=== PATIENT | female | born 1975 | race Caucasian/White ===

== ENCOUNTER 2024-01-10 16:27 | Emergency (ER) | payer MEDICAID, SELFPAY ==
[2024-01-10 16:37] VITALS: BP 145/85; PULSE 89; RESP 19; TEMP 37.1; O2SAT 100; BMI 37.5
--- NOTE | 2024-01-10 16:37 | PD.EDDENTL ---
ED Dental RME/HPI General Chief complaint: Dental/Oral/Throat Stated complaint: JAW PAIN ALL THE WAY UP TO EARS X 4 HRS Time Seen by Provider: 01/10/24 16:31 Arrival date/time: 01/10/24 16:27 48-year-old female presents to the emergency department complains of bilateral jaw pain patient reports history of the same patient requesting pain injection Limitations: no limitations Related Data Home Medications ?Medication ?Instructions ?Recorded ?Confirmed clonazepam 1 mg tablet (Klonopin) 1 mg PO QDAY #0 tabs 04/17/15 Previous Rx's ?Medication ?Instructions ?Recorded ibuprofen 600 mg tablet 1 tab PO Q8HR PRN pain #30 tabs 12/06/16 etodolac 400 mg tablet 400 mg PO BID PRN pain #30 tabs 07/29/19 ibuprofen 800 mg tablet 800 mg PO TID PRN pain #30 tabs 06/18/20 ofloxacin 0.3 % ear drops 10 drp otic (ear) BID #5 mL 03/02/21 diclofenac sodium 1 % topical gel 2 g topical QID #30 grams 11/07/21 ibuprofen 800 mg tablet 800 mg PO TID PRN pain #30 tabs 02/25/22 ibuprofen 600 mg tablet 600 mg PO TID PRN pain #14 tabs 08/02/23 baclofen 10 mg tablet 10 mg PO BID PRN muscle spasm #30 08/24/23 tabs lidocaine 5 % topical patch 2 patch topical QDAY #30 ea 09/18/23 (Lidoderm) ibuprofen 600 mg tablet 600 mg PO Q8H PRN pain #20 tabs 11/24/23 cyclobenzaprine 10 mg tablet 10 mg PO TID PRN muscle spasm 10 01/10/24 days #30 tab-caps ibuprofen 800 mg tablet 800 mg PO TID PRN pain #30 tabs 01/10/24 Allergies Allergy/AdvReac Type Severity Reaction Status Date / Time lurasidone [From Latuda] Allergy Severe Hives Verified 01/10/24 16:29 Penicillins Allergy Severe Rash Verified 01/10/24 16:29 Milk Containing Products Allergy Rash Verified 01/10/24 16:29 (Dairy) Bee Stings Allergy Severe ANAPHYLACTIC Uncoded 01/10/24 16:29 SHOCK Review of Systems Review of Systems Systems Reviewed: All systems reviewed, normal except as documented Constitutional Constitutional: Reports system reviewed and no additional complaints, except as documented, Denies fever(s) and Denies headache(s) Eyes Eyes: Reports system reviewed and no additional complaints, except as documented and Denies blurry vision ENT Ears, Nose, Mouth, and Throat: Reports system reviewed and no additional complaints, except as documented, Reports facial pain, Denies headache(s), Denies nasal congestion and Denies nasal discharge Cardiovascular Cardiovascular: Reports system reviewed and no additional complaints, except as documented, Denies chest pain and Denies dyspnea Respiratory Respiratory: Reports system reviewed and no additional complaints, except as documented, Denies chest congestion, Denies cough and Denies dyspnea Gastrointestinal Gastrointestinal: Reports system reviewed and no additional complaints, except as documented and Denies abdominal pain Integumentary/Breasts Skin/Breast: Reports system reviewed and no additional complaints, except as documented and Denies rash Neurologic Neurologic: Reports system reviewed and no additional complaints, except as documented, Reports as per HPI and Denies headache(s) Past Medical History Past Medical History NEUROLOGIC: Negative Neurological Disorders CARDIAC: Negative Cardiac Disorders ED Exam General Limitations: Present no limitations General appearance: Present alert and in no apparent distress Head Head exam: Present atraumatic Eye Eye exam: Present normal appearance, PERRL and EOMI ENT ENT exam: Present mucous membranes moist and other (Jaw pain) Neck Neck exam: Present normal inspection, full ROM and trachea midline Chest Chest inspection: Present normal inspection and symmetric chest wall rise Respiratory Respiratory exam: Present normal lung sounds bilaterally Cardiovascular Cardiovascular exam: Present regular rate, normal rhythm and normal heart sounds Abdominal Exam Abdominal exam: Present soft and normal bowel sounds Extremities Exam Extremities exam: Present normal inspection and full ROM Back Exam Back exam: Present normal inspection and full ROM Neurological Exam Neurological exam: Present alert, oriented X3 and CN II-XII intact Psychiatric Psychiatric exam: Present normal affect and normal mood Skin Skin exam: Present warm, dry, intact and normal color Course Quality Measures none Orders Category Date Time Status Ketorolac Inj [Toradol Inj] Med 01/10/24 16:37 Discontinued 30 mg IM X1 ONE Vital Signs Vital signs: Vital Signs Temperature 98.8 F 01/10/24 16:37 Pulse Rate 89 01/10/24 16:37 Respiratory Rate 19 01/10/24 16:37 Blood Pressure 145/85 H 01/10/24 16:37 Pulse Oximetry (%) 100 01/10/24 16:37 Oxygen Delivery Method Room Air 01/10/24 16:37 O2 saturation 100% room air within normal limits Dental / Oral MDM Narrative MDM Narrative:: 48-year-old female presents to the emergency department complains of bilateral jaw pain patient reports history of the same patient requesting pain injection On exam patient well-appearing patient does not appear ill or toxic no acute distress patient shows me she has no chest pain or shortness of breath Patient given Toradol for pain Patient discharged home in no distress to follow-up with primary care doctor in the next 24 to 48 hours and for any worsening symptoms to return to the ER immediately Patient data External records reviewed:: [facility] previous records Clinical information provided by:: patient Social determinants that could affect healthcare access:: none Patient has the following chronic illnesses:: None How is presenting disease/condition affected by chronic disease/condition?: no chronic disease Evaluation data The following diagnostics were reviewed and interpreted by me:: other (specify) (N/A) Lab and/or radiology exams considered but not ordered:: Consider not ordered Interpretation Summary: N/A Medications / Prescriptions Medications or Prescriptions considered but not ordered:: Given Medication administrations:: Medication Administration History Discontinued Medications Ketorolac Tromethamine (Ketorolac Inj 30 Mg/Ml Vial) 30 mg IM X1 ONE Stop: 01/10/24 16:38 Last Admin: 01/10/24 16:43 Dose: 30 mg Documented By: SAMARA Given Consultations Consultation(s) initiated? (list below): No Diagnosis Dental Differential Diagnosis: gingival abscess, dental caries, toothache and fracture of tooth Most likely diagnosis given after review of the tests above:: Facial pain Admission Indicated Admission indicated?: not indicated Admission Request Was there a request for admission?: No Disposition Plan Disposition Plan: Discharge Discharge Attestation Discharge Attestation: The patient and all family members were given an opportunity to ask questions and understood the discharge instructions. Discharge instructions specifically effects, indications for sooner follow up or return to the emergency department, and the expected course of current diagnosis. Patient condition: Stable Discharge Plan Plan Patient Disposition: HOME (Self Care) Disposition Comment: Stable Prescriptions/Referrals Prescriptions/Med Rec: New cyclobenzaprine 10 mg tablet 10 mg PO TID PRN (Reason: muscle spasm) 10 Days Qty: 30 0RF ibuprofen 800 mg tablet 800 mg PO TID PRN (Reason: pain) Qty: 30 0RF No Action clonazepam [Klonopin] 1 MG tablet 1 mg PO QDAY Qty: 0 ibuprofen 600 MG tablet 1 tab PO Q8HR PRN (Reason: pain) Qty: 30 0RF ibuprofen 800 mg tablet 800 mg PO TID PRN (Reason: pain) Qty: 30 0RF ofloxacin 0.3 % drops 10 drp otic (ear) BID Qty: 5 0RF etodolac 400 mg tablet 400 mg PO BID PRN (Reason: pain) Qty: 30 0RF diclofenac sodium 1 % gel 2 g topical QID Qty: 30 0RF Rx Instructions: apply to single elbow, wrist or hand; for hand includes palm/fingers/back of hand ibuprofen 800 mg tablet 800 mg PO TID PRN (Reason: pain) Qty: 30 0RF lidocaine [Lidoderm] 5 % adhesive patch,medicated 2 patch topical QDAY Qty: 30 0RF Rx Instructions: leave on most painful area for up to 12 hrs ibuprofen 600 mg tablet 600 mg PO TID PRN (Reason: pain) Qty: 14 0RF baclofen 10 mg tablet 10 mg PO BID PRN (Reason: muscle spasm) Qty: 30 0RF ibuprofen 600 mg tablet 600 mg PO Q8H PRN (Reason: pain) Qty: 20 0RF Problem List Clinical Impression: Jaw pain Patient/Caregiver Discharge Instructions Education Materials: Medicine for Pain Additional Instructions: Please follow up with your primary care doctor in the next 24-48hrs for any worsening symptoms return here immediately Print Language: Guyanese Stand Alone Forms: Ashley Award Info., Patient Portal Info Letter 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
[2024-01-10] MEDS: KETOROLAC INJ 30 MG/ML VIAL IM (16:43)
== END 2024-01-10 16:47 | disposition home or self-care (01) ==
LOC: SERX 16:48
PROVIDERS: Emergency Provider Emergency Medicine; PCP Family Medicine
DX: R68.84 Jaw pain (principal)
CPT/HCPCS: 96372; 99283; J1885

== ENCOUNTER 2024-01-27 14:22 | Emergency (ER) | payer MEDICAID, SELFPAY ==
[2024-01-27 15:02] VITALS: BP 152/102; PULSE 95; RESP 16; TEMP 36.6; O2SAT 98; BMI 30.4
--- NOTE | 2024-01-27 15:42 | XR_ITS ---
Examination: Foot, left 3 views Technique: AP oblique lateral left foot 3 views Exam date and time: January 27, 2024 1548 hrs. Comparison August 08, 2023 Indications: Left foot pain today Findings: No acute fracture No cortical bone destruction No foreign body Impression: No acute fracture No cortical bone destruction
--- NOTE | 2024-01-27 15:43 | PD.EDANKLE ---
Lower Extremity Injury RME/HPI General Chief Complaint: Ankle/Foot Injury Stated Complaint: LEFT FOOT PAIN Time Seen by Provider: 01/27/24 15:10 Arrival date/time: 01/27/24 14:22 RME / HPI RME / HPI Narrative: 48-year-old female patient came in for evaluation regarding left foot injury. Patient accidentally hit his foot with a bed frame resulting into swelling, pain, more on the fourth metatarsal area, severity moderate. Patient took ibuprofen with no relief. Denies any other injury. No medications taken prior travel. Related Data Home Medications ?Medication ?Instructions ?Recorded ?Confirmed clonazepam 1 mg tablet (Klonopin) 1 mg PO QDAY #0 tabs 04/17/15 Previous Rx's ?Medication ?Instructions ?Recorded ibuprofen 600 mg tablet 1 tab PO Q8HR PRN pain #30 tabs 12/06/16 etodolac 400 mg tablet 400 mg PO BID PRN pain #30 tabs 07/29/19 ibuprofen 800 mg tablet 800 mg PO TID PRN pain #30 tabs 06/18/20 ofloxacin 0.3 % ear drops 10 drp otic (ear) BID #5 mL 03/02/21 diclofenac sodium 1 % topical gel 2 g topical QID #30 grams 11/07/21 ibuprofen 800 mg tablet 800 mg PO TID PRN pain #30 tabs 02/25/22 ibuprofen 600 mg tablet 600 mg PO TID PRN pain #14 tabs 08/02/23 baclofen 10 mg tablet 10 mg PO BID PRN muscle spasm #30 08/24/23 tabs lidocaine 5 % topical patch 2 patch topical QDAY #30 ea 09/18/23 (Lidoderm) ibuprofen 600 mg tablet 600 mg PO Q8H PRN pain #20 tabs 11/24/23 ibuprofen 800 mg tablet 800 mg PO TID PRN pain #30 tabs 01/10/24 ibuprofen 800 mg tablet 800 mg PO TID PRN pain #30 tabs 01/27/24 Allergies Allergy/AdvReac Type Severity Reaction Status Date / Time lurasidone [From Latuda] Allergy Severe Hives Verified 01/27/24 14:23 Penicillins Allergy Severe Rash Verified 01/27/24 14:23 Milk Containing Products Allergy Rash Verified 01/27/24 14:23 (Dairy) Bee Stings Allergy Severe ANAPHYLACTIC Uncoded 01/27/24 14:23 SHOCK Review of Systems Review of Systems Narrative Review of Systems: Review of system reviewed and within normal limits except mentioned in HPI ED Exam Narrative Physical exam: VITAL SIGNS: Reviewed. GENERAL APPEARANCE: Alert and interactive, follows commands, no acute distress, HEAD AND FACE: Non-traumatic. ENT: PERRL, pink conjunctivitis, eyelid no trauma, Mucous membrane moist. NECK: Supple, nontender, no nuchal rigidity. CHEST: No tenderness, no crepitus, no paradoxical movement, no retractions. LUNGS: Clear, well ventilated, symmetric, no rales, no wheezing, no ronchi, no stridor, good breath sounds bilaterally. HEART: Regular rate, regular rhythm, no murmur, no gallops. ABDOMEN: Soft, positive bowel sounds, nondistended, no guarding, nontender, no rebound, no masses, RECTAL: Deferred. GENITAL: Deferred. NEUROLOGICAL: Gross motor function intact sensory function intact, Appropriate for age. MUSCULOSKELETAL: low back nontender, full range of motion. EXTREMITIES: Pain and tenderness with swelling and bruising left fourth metatarsal, full range of motion. SKIN: Color pink, dry, no rash, no lacerations, no abrasions, no contusions. LYMPHATICS: Deferred. Course Quality Measures none Orders Category Date Time Status XR foot comp LT min 3V Stat Exams 01/27/24 15:42 Completed HYDROcodone/APAP 10325 [[place] 10/325] Med 01/27/24 15:42 Discontinued 1 tab PO X1 ONE Vital Signs Vital signs: Vital Signs Temperature 97.8 F 01/27/24 15:02 Pulse Rate 95 01/27/24 15:02 Respiratory Rate 16 01/27/24 15:02 Blood Pressure 152/102 H 01/27/24 15:02 Pulse Oximetry (%) 98 01/27/24 15:02 Oxygen Delivery Method Room Air 01/27/24 15:02 Extremity Injury, Lower MDM Narrative MDM Narrative:: X-ray of the foot is negative for any acute pathology. Results discussed with the patient. Patient was given [place] with significant improvement of pain. Patient supercharge Patient data External records reviewed:: None Clinical information provided by:: none Social determinants that could affect healthcare access:: none Patient has the following chronic illnesses:: None How is presenting disease/condition affected by chronic disease/condition?: no chronic disease Evaluation data The following diagnostics were reviewed and interpreted by me:: radiology exam(s) Lab and/or radiology exams considered but not ordered:: None Interpretation Summary: X-ray report is negative for any acute osseous pathology. Medications / Prescriptions Medications or Prescriptions considered but not ordered:: None Medication administrations:: Medication Administration History Discontinued Medications Hydrocodone Bitart/Acetaminophen (Hydrocodone/[place] 10/325 Tab) 1 tab PO X1 ONE Stop: 01/27/24 15:43 Last Admin: 01/27/24 15:52 Dose: 1 tab Documented By: ER [place] Consultations Consultation(s) initiated? (list below): No Diagnosis Extremity Injury, Lower Differential Diagnosis: other (Foot contusion, foot fracture, foot sprain) Most likely diagnosis given after review of the tests above:: Foot contusion Admission Indicated Admission indicated?: not indicated Explain why admission is indicated or not indicated:: Stable Admission Request Was there a request for admission?: No Disposition Plan Disposition Plan: Discharge Discharge Attestation Discharge Attestation: The patient was given an opportunity to ask questions and understood the discharge instructions. Discharge instructions specifically effects, indications for sooner follow up or return to the emergency department, and the expected course of current diagnosis. Patient condition: Stable Discharge Plan Plan Patient Disposition: HOME (Self Care) Disposition Comment: stable Prescriptions/Referrals Prescriptions/Med Rec: New ibuprofen 800 mg tablet 800 mg PO TID PRN (Reason: pain) Qty: 30 0RF No Action clonazepam [Klonopin] 1 MG tablet 1 mg PO QDAY Qty: 0 ibuprofen 600 MG tablet 1 tab PO Q8HR PRN (Reason: pain) Qty: 30 0RF ibuprofen 800 mg tablet 800 mg PO TID PRN (Reason: pain) Qty: 30 0RF ofloxacin 0.3 % drops 10 drp otic (ear) BID Qty: 5 0RF etodolac 400 mg tablet 400 mg PO BID PRN (Reason: pain) Qty: 30 0RF diclofenac sodium 1 % gel 2 g topical QID Qty: 30 0RF Rx Instructions: apply to single elbow, wrist or hand; for hand includes palm/fingers/back of hand ibuprofen 800 mg tablet 800 mg PO TID PRN (Reason: pain) Qty: 30 0RF lidocaine [Lidoderm] 5 % adhesive patch,medicated 2 patch topical QDAY Qty: 30 0RF Rx Instructions: leave on most painful area for up to 12 hrs ibuprofen 800 mg tablet 800 mg PO TID PRN (Reason: pain) Qty: 30 0RF ibuprofen 600 mg tablet 600 mg PO TID PRN (Reason: pain) Qty: 14 0RF baclofen 10 mg tablet 10 mg PO BID PRN (Reason: muscle spasm) Qty: 30 0RF ibuprofen 600 mg tablet 600 mg PO Q8H PRN (Reason: pain) Qty: 20 0RF Problem List Clinical Impression: Contusion of foot Patient/Caregiver Discharge Instructions Discharge Activity: activity as tolerated Education Materials: Bruises (Contusions) Additional Instructions: Thank you for the opportunity for serving you today. You are stable for discharged . You are advised to: Follow-up with your PCP in 1 to 2 days Return to ED for worsening of symptoms Increase oral fluids Take medication as prescribed Print Language: Macanese Stand Alone Forms: Ashley Award Info., Patient Portal Info Letter SOSA/KOKO Supervising Physician SOSA/KOKO Supervising Physician: MD Gladys
[2024-01-27] MEDS: HYDROcodone/APAP 10/325 TAB PO (15:52)
== END 2024-01-27 16:58 | disposition home or self-care (01) ==
LOC: SERX 17:17
PROVIDERS: Emergency Provider Emergency Medicine
DX: S90.32XA Contusion of left foot, initial encounter (principal); W22.8XXA Striking against or struck by other objects, initial encounter
CPT/HCPCS: 73630; 99283; A9270

== ENCOUNTER 2024-05-02 21:01 | Emergency (ER) | payer MEDICAID, SELFPAY ==
[2024-05-02 21:01] VITALS: BMI 31.9
[2024-05-02 21:17] VITALS: BP 165/104; BP 176/118; PULSE 121; RESP 20; TEMP 36.9; O2SAT 93
--- NOTE | 2024-05-02 21:26 | EKG_ITS ---
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
--- NOTE | 2024-05-02 21:27 | XR_ITS ---
Examination: CT brain head without contrast. 2-D sagittal coronal reconstructions Date and time of exam:May 02, 2024 10 0 1:00 PM Indications: Patient fell 3:00 AM today with injury to the head, head pain CTDI: vol (mGy):48.3 DLP: (mGycm):896 Technique: Multiple CT axial sections of the brain have been obtained, 5 mm slice thickness. Contrast has not been administered. 2-D sagittal, coronal reconstructions have been obtained Low dose protocols were performed. One or more of the following dose reduction techniques were used; automated exposure control, adjustment of the mA and/or KV according to patient size, use of iterative reconstruction technique. Findings: No significant ventricular enlargement. Intra-axial or extra-axial hemorrhage density is not seen. No mass effect or midline shift Basal cisterns are not remarkable. Fourth ventricle is midline. Cranial vault intact. Significant sinusitis including acute maxillary sinusitis Impression: Negative for acute hemorrhage, mass effect or midline shift
--- NOTE | 2024-05-02 21:27 | XR_ITS ---
Examination: PA chest single view Technique: Upright PA chest single view Exam date and time: May 02, 2024 at 2137 hrs. Comparison October 02, 2014 Indications: Syncopal episode today. Findings: Normal heart size Accentuation basilar bronchovascular markings No lobar pneumonia No pulmonary edema Impression: Basilar bronchitis pattern
--- NOTE | 2024-05-02 21:28 | PD.EDRME ---
Rapid Medical Screening Exam [facility] Arrival date/time: 05/02/24 21:01 48F with history of psych/marijuana/alcohol use presents to ED with syncope leading to fall/head pain and alcohol withdrawal symptoms including tremors. Chief Complaint: Alcohol Vital signs: Vital Signs Temperature 98.5 F 05/02/24 21:17 Pulse Rate 121 H 05/02/24 21:17 Respiratory Rate 20 05/02/24 21:17 Blood Pressure 176/118 H 05/02/24 21:17 Pulse Oximetry (%) 93 L 05/02/24 21:17 Oxygen Delivery Method Room Air 05/02/24 21:17
[2024-05-02] MEDS: DIAZEPAM 5 MG TABLET 10 MG PO (21:34)
[2024-05-02 22:12] VITALS: BP 175/116; PULSE 121; RESP 17; TEMP 36.8; O2SAT 92
[2024-05-02 22:13] LABS: Basophils # (Auto) 0.1 Thou/mm3 (0.0-0.2); Basophils % (Auto) 0 % (0-2.5); Eosinophils % (Auto) 0 % (0-10); Hemoglobin 13.6 g/dL (12.0-16.0); Immature Granulocytes % (Auto) 0 % (0-0); Immature Granulocytes Auto 0.05 Thou/mm3 (0.00-0.00); Lymphocytes % (Auto) 21 % (10-50); Mean Corpuscular Hemoglobin 31.6 pg (25.0-35.0); Mean Corpuscular Volume 93 fL (80-100); Monocytes # (Auto) 1.2 Thou/mm3 (0.0-0.8); Monocytes % (Auto) 9 % (0-12); Neutrophils # (Auto) 9.5 Thou/mm3 (1.8-7.7); Neutrophils % (Auto) 69 % (37-80); Nucleated Red Blood Cell % 0 /100 WBC (0); Platelet Count 328 Thou/mm3 (140-440); RDW Standard Deviation 41.6 fL (36.4-46.3); Red Blood Count 4.31 Miln/mm3 (4.00-5.20); White Blood Count 13.8 Thou/mm3 (3.6-11.0)
[2024-05-02 22:30] LABS: Alanine Aminotransferase 17 U/L (10-49); Albumin, Serum 5.5 gm/dL (3.5-5.0); Albumin/Globulin Ratio 1.7 (1.2-2.2); Alcohol, Blood Medical < 3.0 mg/dL (0-10.0); Alkaline Phosphatase 89 U/L (46-116); Anion Gap 11 (7-16); Aspartate Amino Transferase 18 U/L (0-34); BUN/Creatinine Ratio 7 Ratio (12-20); Bilirubin,Total 0.6 mg/dL (0.3-1.2); Blood Urea Nitrogen 6 mg/dL (9-23); Carbon Dioxide 26.9 mMol/L (20.0-31.0); Chloride 100 mMol/L (98-107); Creatinine (Component) 0.9 mg/dL (0.6-1.3); Estimated Creatinine Clearance 84.4 mL/min (>60); Globulin 3.3 gm/dL (2.3-3.5); Glucose 113 mg/dL (74-106); Osmolality,Calculated 274 (275-295); Potassium 3.3 mMol/L (3.4-5.1); Sodium 138 mMol/L (136-145); Total Protein 8.8 gm/dL (5.7-8.2); Troponin I < 0.002 ng/mL (0.0-0.045); eGFR > 60 See Note
[2024-05-02 23:00] VITALS: BP 186/112; PULSE 119; RESP 22; TEMP 36.8; O2SAT 91
--- NOTE | 2024-05-02 23:34 | EDNOTE_ITS ---
ED Alcohol RME/HPI General Chief Complaint: Alcohol Stated Complaint: ALCOHOL WITHDRAWAL / FALL Arrival date/time: 05/02/24 21:01 RME / HPI RME / HPI narrative: 05/02/24 21:01 48F with history of psych/marijuana/alcohol use presents to ED with syncope leading to fall/head pain and alcohol withdrawal symptoms including tremors. -------- Dr. Purcell?s Main ED Evaluation: 48yo female presents to the ED for complaints of right flank pain and shortness of breath. Patient states she passed out and fell on 04/24/24, reporting she was passed out on the floor for 6 hours. Patietn states she started having right flank pain and felt short of breath today, so she came in for evaluation. Patient reports associated productive cough with white phlegm. Patient denies any N/V, abdominal pain or any other associated symptoms. Patient states she quit drinking alcohol on 04/24/24. Patient is a current tobacco smoker. Denies any abdominal PSH. Related Data Home Medications ?Medication ?Instructions ?Recorded ?Confirmed clonazepam 1 mg tablet (Klonopin) 1 mg PO QDAY #0 tabs 04/17/15 Previous Rx's ?Medication ?Instructions ?Recorded ibuprofen 600 mg tablet 1 tab PO Q8HR PRN pain #30 t abs 12/06/16 etodolac 400 mg tablet 400 mg PO BID PRN pain #30 t abs 07/29/19 ibuprofen 800 mg tablet 800 mg PO TID PRN pain #30 t abs 06/18/20 ofloxacin 0.3 % ear drops 10 drp otic (ear) BID #5 mL 03/02/21 diclofenac sodium 1 % topical gel 2 g topical QID #30 grams 11/07/21 ibuprofen 800 mg tablet 800 mg PO TID PRN pain #30 t abs 02/25/22 ibuprofen 600 mg tablet 600 mg PO TID PRN pain #14 t abs 08/02/23 baclofen 10 mg tablet 10 mg PO BID PRN muscle spas m #30 08/24/23 tabs lidocaine 5 % topical patch 2 patch topical QDAY #30 e a 09/18/23 (Lidoderm) ibuprofen 600 mg tablet 600 mg PO Q8H PRN pain #20 t abs 11/24/23 ibuprofen 800 mg tablet 800 mg PO TID PRN pain #30 t abs 01/10/24 ibuprofen 800 mg tablet 800 mg PO TID PRN pain #30 t abs 01/27/24 doxycycline monohydrate 100 mg 100 mg PO BID Community -acquired 05/03/24 capsule pneumonia 10 days #20 caps ibuprofen 600 mg tablet 600 mg PO Q6H PRN pain #30 t abs 05/03/24 Allergies Allergy/AdvReac Type Severity Reaction Status Date / Time lurasidone (From Latuda) Allergy Severe Hives Verified 01/27/24 14:23 Penicillins Allergy Severe Rash Verified 01/27/24 14:23 Milk Containing Products Allergy Rash Verified 01/27/24 14:23 (Dairy) Bee Stings Allergy Severe ANAPHYLACTIC Uncoded 01/27/24 14:23 SHOCK Review of Systems Review of Systems Systems Reviewed: All systems reviewed, normal except as documented Past Medical History Past Medical History NEUROLOGIC: Negative Neurological Disorders CARDIAC: Negative Cardiac Disorders or Congestive Heart Failure RESPIRATORY: Positive Asthma; Negative Chronic Obstructive Pulmonary Disease (COPD) GENITOURINARY: Negative Renal Disease ENDOCRINE: Negative Diabetes Mellitus Type 1 or Diabetes Mellitus Type 2 HEMATOLOGIC: Negative Sickle Cell Disease PSYCHO/SOCIAL: Positive Bipolar Disorder Social History SMOKING STATUS: Former smoker ED Exam Narrative Physical exam: GENERAL APPEARANCE: alert and oriented x 4, well-developed, well-nourished, no acute distress VITALS: All vitals were reviewed and the pulse ox is 96% on room air, which is normal according to my interpretation. HEENT: Normocephalic, atraumatic; pupils equal, round, reactive to light; EOMI; mucous membranes pink, moist; oropharynx clear NECK: Supple LUNGS: Coarse breath sounds throughout; no wheezes, no rales, no rhonchi HEART: Regular rate, regular rhythm; normal S1, S2; no murmurs ABDOMEN: non distended; normal BS; soft, no tenderness, no guarding, no rebound; no masses, no organomegaly, no hernia BACK: right CVA tenderness EXTREMITIES: atraumatic; no edema NEUROLOGIC: awake; alert and oriented x4; cranial nerves II-XII grossly intact; no focal sensory or motor deficits PSYCHIATRIC: appropriate mood and affect SKIN: warm, dry, normal color; no rashes Course Quality Measures none Orders Category Date Time Status Bedside COVID-19 Antigen Test NOW Care 05/03/24 00:40 Active Bedside Influenza A&B Antigen Test NOW Care 05/03/24 00:[address] Screening NOW Care 05/03/24 00:43 Active Senior Administrator Support STAT Care 05/02/24 23:36 Active Continuous Pulse Oximetry ONCE Care 05/02/24 23:36 Active EKG (ED ONLY) *Do not use* NOW Care 05/02/24 21:26 Completed Insert IV STAT Care 05/02/24 23:[address] chest abdomen pelvis w Stat Exams 05/03/24 00:[address] head/brain wo con Stat Exams 05/02/24 21:27 Completed EKG (ED Only) Stat Exams 05/02/24 21:26 Draft XR chest 1V portable Stat Exams 05/02/24 21:27 Completed Alcohol, Blood Medical Stat Lab 05/02/24 21:59 Completed B-Type Natriuretic Peptide Stat Lab 05/03/24 00:54 Completed Blood Culture (Lab) Stat Lab 05/03/24 00:49 Received CBC Stat Lab 05/02/24 21:59 Completed Comprehensive Metabolic Panel Stat Lab 05/02/24 21:59 Completed Drug Screen,Urine Stat Lab 05/02/24 23:52 Completed HCG Qualitative,Urine Stat Lab 05/03/24 00:00 Completed LDH (Lactate Dehydrogenase) Stat Lab 05/03/24 00:54 Completed Lactate (Lactic Acid) Stat Lab 05/03/24 00:54 Completed Lipase Stat Lab 05/02/24 21:59 Completed Magnesium Stat Lab 05/02/24 21:59 Completed Magnesium Stat Lab 05/03/24 00:54 Completed Partial Thromboplastin Time Stat Lab 05/02/24 21:59 Completed Phosphorous Stat Lab 05/03/24 00:54 Completed Procalcitonin Stat Lab 05/03/24 00:54 Completed Prothrombin Time with INR Stat Lab 05/02/24 21:59 Completed Troponin I Stat Lab 05/02/24 21:59 Completed Urinalysis, C/S if Indicated Stat Lab 05/02/24 23:52 Completed Azithromycin Inj [Zithromax Inj] 500 mg Med 05/03/24 00:40 Discontinued Sodium Chloride 0.9% 250 ml [Ns] 250 ml IV X1 Diazepam Inj [Valium Inj] Med 05/03/24 02:02 Discontinued 5 mg IVP X1 ONE Diazepam [Valium] Med 05/02/24 21:27 Discontinued 10 mg PO X1 ONE Folic Acid Inj Med 05/02/24 23:37 Discontinued 1 mg IVP X1 ONE Sodium Chloride 0.9% 1000 ml [Ns] 1,000 ml Med 05/02/24 23:36 Discontinued IV 999 mls/hr Sodium Chloride 0.9% 1000 ml [Ns] 1,000 ml Med 05/03/24 00:40 Discontinued IV 999 mls/hr Thiamine Inj [Vitamin B-1 Inj] Med 05/02/24 23:37 Discontinued 100 mg IVP X1 ONE cefTRIAXone [Rocephin] 1,000 mg Med 05/03/24 00:38 Discontinued SODIUM CHLORIDE 0.9% (Popper) [Ns 0.9% (P)] 50 ml IV X1 chlordiazePOXIDE HCl [Librium] Med 05/03/24 00:41 Discontinued 50 mg PO X1 ONE hydrALAZINE INJ [Apresoline Inj] Med 05/03/24 02:02 Discontinued 10 mg IV X1 ONE Oxygen Delivery NOW RT 05/02/24 23:36 Active Reevaluation(s) Reevaluation #1: Patient's heart rate has improved to 109, but continues to be hypertensive at 145/102. Hydralazine and additional Valium 5mg ordered. Time: 01:59 Reevaluation #2: Patient's blood pressure has improved to 136/84 after receiving hydralazine. I am holding the Valium at this time. Time: 02:45 Vital Signs Vital signs: Vital Signs Temperature 98.5 F 05/02/24 21:17 Pulse Rate 121 H 05/02/24 21:17 Respiratory Rate 20 05/02/24 21:17 Blood Pressure 176/118 H 05/02/24 21:17 Pulse Oximetry (%) 93 L 05/02/24 21:17 Oxygen Delivery Method Room Air 05/02/24 21:17 Procedures -ED Smoking Cessation Time Spent Discussing Smoking Cessation w/Patient (min): 5 Patient Acknowledges Need for Cessation: Yes Additional Comments: The patient was counseled as to the multiple risks to their health from continued use of tobacco products. It was explained that continuing to smoke may lead to multiple short and terminal gauger negative health consequences, including but not limited to mouth/esophageal/lung cancer, COPD, and heart disease. The patient states she/he understands these risks and also understands the options and resources available to them to help them stop smoking. Nicotine replacement therapy, local hotlines, and local resources were discussed as viable options for helping them stop their tobacco use. The total time spent counseling the patient regarding tobacco cessation was 5 minutes Critical Care Time Critical Care Time Critical Care Time: Yes Total Critical Care Time (min.): 60 Attestation: The high probability of sudden, clinically significant deterioration in the patient?s condition required the highest level of my preparedness to intervene urgently. The services I provided to this patient were to treat and/or prevent clinically significant deterioration. Services included the following: chart data review, reviewing nursing notes and/or old charts, documentation time, business intelligence consultant collaboration regarding findings and treatment options, medication orders and management, direct patient care, vital sign assessments and ordering, interpreting and reviewing diagnostic studies and lab tests. Aggregate critical care time includes only time during which I was engaged in work directly related to the patient?s care, as described above, whether at bedside or elsewhere in the Emergency Department. It did not include time spent performing other reported procedures or the services of residents, students, nurses or physician assistants. Discharge Plan Plan Patient Disposition: Left Against Medical Advice Disposition Comment: Leaving AGAINST MEDICAL ADVICE Prescriptions/Referrals Prescriptions/Med Rec: New doxycycline monohydrate 100 mg capsule 100 mg PO BID 10 Days Qty: 20 0RF ibuprofen 600 mg tablet 600 mg PO Q6H PRN (Reason: pain) Qty: 30 0RF No Action clonazepam [Klonopin] 1 MG tablet 1 mg PO QDAY Qty: 0 ibuprofen 600 MG tablet 1 tab PO Q8HR PRN (Reason: pain) Qty: 30 0RF ibuprofen 800 mg tablet 800 mg PO TID PRN (Reason: pain) Qty: 30 0RF ofloxacin 0.3 % drops 10 drp otic (ear) BID Qty: 5 0RF etodolac 400 mg tablet 400 mg PO BID PRN (Reason: pain) Qty: 30 0RF diclofenac sodium 1 % gel 2 g topical QID Qty: 30 0RF Rx Instructions: apply to single elbow, wrist or hand; for hand includes palm/fingers/back of hand ibuprofen 800 mg tablet 800 mg PO TID PRN (Reason: pain) Qty: 30 0RF lidocaine [Lidoderm] 5 % adhesive patch,medicated 2 patch topical QDAY Qty: 30 0RF Rx Instructions: leave on most painful area for up to 12 hrs ibuprofen 800 mg tablet 800 mg PO TID PRN (Reason: pain) Qty: 30 0RF ibuprofen 600 mg tablet 600 mg PO TID PRN (Reason: pain) Qty: 14 0RF baclofen 10 mg tablet 10 mg PO BID PRN (Reason: muscle spasm) Qty: 30 0RF ibuprofen 600 mg tablet 600 mg PO Q8H PRN (Reason: pain) Qty: 20 0RF ibuprofen 800 mg tablet 800 mg PO TID PRN (Reason: pain) Qty: 30 0RF Referrals: Michael Root [Primary Care Provider] - In 1 week Problem List Clinical Impression: Pneumonia, Methamphetamine abuse, Cannabis abuse, Hypertensive emergency, Sepsis, Left against medical advice Patient/Caregiver Discharge Instructions Discharge Activity: activity as tolerated Education Materials: Addiction Ask These Questions, Addiction: Getting Help, Understanding Methamphetamine ..., Treating Drug Abuse and Addiction, Sepsis, Understanding Sepsis, ED Pneumonia (Adult) Additional Instructions: Just because you are leaving AGAINST MEDICAL ADVICE does not mean you cannot come back to the emergency department anytime you like. Please return to the ER when you are ready to complete the treatment of your illnesses and we will be more than happy to welcome you here. Please be sure to go to your pharmacy and fill your prescriptions. The most important prescription is doxycycline. This is your antibiotic. I am ordering this medicine to treat your pneumonia. Please take this twice per day until they are completely gone even if you feel better before that. Also there will be ibuprofen which you should take for pain. Please return to the ER at your earliest convenience and we will help you. Otherwise you should follow-up as soon as possible with your primary care doctor or in the family [facility]. Print Language: Romansh Stand Alone Forms: Ashley Award Info., Patient Portal Info Letter Alcohol MDM Narrative MDM Narrative: Scribe Attestation: 05/02/24 - Angela Tello am scribing for and in the presence of Dr. Purcell. 0257: Patient states she is unable to stay and needs to tend to her 17yo son at home. Risks discussed regarding her signout out against medical advice. Patient verbalized understanding and is signing out against medical advice. Patient is more than welcome to return for any worsening symptoms or any other concerns. Patient data External records reviewed:: [facility] previous records (Per chart review, patient was seen here on 12/11/23 for alcohol abuse.) Clinical information provided by:: patient Social determinants that could affect healthcare access:: alcohol use Patient has the following chronic illnesses:: asthma How is presenting disease/condition affected by chronic disease/condition?: uneffected by Evaluation data The following diagnostics were reviewed and interpreted by me:: lab results, radiology exam(s) and EKG tracing(s) Lab and/or radiology exams considered but not ordered:: none Interpretation Summary: WBC count is elevated at 13.8, Potassium is 3.3, Glucose is 113, LFTs are normal, Troponin is normal, Blood Alcohol is negative, UDS is positive for methamphetamines and marijuana, according to my interpretation. CXR shows bilateral lower lobe infiltrates, normal cardiac silhouette, and a normal mediastinum, according to my interpretation. EKG done at 2, sinus tachycardia, rate of 121, normal axis, no ectopy, no acute ischemia, according to my interpretation. [facility] Report Signed Patient: JOANNE CM [facility]. Record#: [id number] Birthdate: 1975 Age/Sex: 48 / F Location: [facility] Attending Dr: Ordering Physician: Larry Lozano PA-C Date of Service: 05/02/24 Procedure(s): XR chest 1V portable Accession Number(s): [id number] cc: Atif Moody MD; MICHAEL ROOT; Larry Lozano PA-C~ Examination: PA chest single view Technique: Upright PA chest single view Exam date and time: May 02, 2024 at 2137 hrs. Comparison October 02, 2014 Indications: Syncopal episode today. Findings: Normal heart size Accentuation basilar bronchovascular markings No lobar pneumonia No pulmonary edema Impression: Basilar bronchitis pattern Dictated By: Atif Moody MD Signed By: <Electronically signed by Atif Moody MD in OV> 05/02/242224 [facility] Report Signed [facility] Record[facility] [id number] Birthdate: 1975 Age/Sex: 48 / F Location: [facility] Attending Dr: Ordering Physician: Larry Lozano PA-C Date of Service: 05/02/24 Procedure(s): CT head/brain wo con Accession Number(s): [id number] cc: Atif Moody MD; MICHAEL ROOT; Larry Lozano PA-C~ Examination: CT brain head without contrast. 2-D sagittal coronal reconstructions Date and time of exam:May 02, 2024 10 0 1:00 PM Indications: Patient fell 3:00 AM today with injury to the head, head pain CTDI: vol (mGy):48.3 DLP: (mGycm):896 Technique: Multiple CT axial sections of the brain have been obtained, 5 mm slice thickness. Contrast has not been administered. 2-D sagittal, coronal reconstructions have been obtained Low dose protocols were performed. One or more of the following dose reduction techniques were used; automated exposure control, adjustment of the mA and/or KV according to patient size, use of iterative reconstruction technique. Findings: No significant ventricular enlargement. Intra-axial or extra-axial hemorrhage density is not seen. No mass effect or midline shift Basal cisterns are not remarkable. Fourth ventricle is midline. Cranial vault intact. Significant sinusitis including acute maxillary sinusitis Impression: Negative for acute hemorrhage, mass effect or midline shift Dictated By: Atif Moody MD Signed By: <Electronically signed by Atif Moody MD in OV> 05/02/24 0908 Medications / Prescriptions Medications or Prescriptions considered but not ordered:: none Medication administrations:: Medication Administration History Discontinued Medications Chlordiazepoxide HCl (Chlordiazepoxide Hcl 25 Mg Capsule) 50 mg PO X1 ONE Stop: 05/03/24 00:42 Last Admin: 05/03/24 01:18 Dose: 50 mg Documented By: YOKASTA Diazepam (Diazepam 5 Mg Tablet) 10 mg PO X1 ONE Stop: 05/02/24 21:28 Last Admin: 05/02/24 21:34 Dose: 10 mg Documented By: CB Diazepam (Diazepam Inj 5 Mg/Ml Vial 2 Ml) 5 mg IVP X1 ONE Stop: 05/03/24 02:03 Folic Acid (Folic Acid Inj 1 Mg/0.2 Ml) 1 mg IVP X1 ONE Stop: 05/02/24 23:38 Last Admin: 05/03/24 01:05 Dose: 1 mg Documented By: YOKASTA Hydralazine HCl (Hydralazine Inj 20 Mg/Ml Vial) 10 mg IV X1 ONE Stop: 05/03/24 02:03 Last Admin: 05/03/24 02:42 Dose: 10 mg Documented By: YOKASTA Sodium Chloride (Ns) 1,000 mls @ 999 mls/hr IV .Q1H1M ONE Stop: 05/03/24 00:36 Last Infusion: 05/03/24 02:19 Dose: Infused Documented By: Admin: 05/03/24 01:09 Dose: 999 mls/hr Documented By: YOKASTA Ceftriaxone Sodium 1,000 mg/ (Sodium Chloride) 50 mls @ 100 mls/hr IV X1 ONE Stop: 05/03/24 01:07 Last Infusion: 05/03/24 01:50 Dose: Infused Documented By: Admin: 05/03/24 01:05 Dose: 100 mls/hr Documented By: YOKASTA Comments: Sodium Chloride (Ns) 1,000 mls @ 999 mls/hr IV .Q1H1M ONE Stop: 05/03/24 01:40 Last Infusion: 05/03/24 02:19 Dose: Infused Documented By: Admin: 05/03/24 01:11 Dose: 999 mls/hr Documented By: YOKASTA Azithromycin 500 mg/ Sodium (Chloride) 250 mls @ 250 mls/hr IV X1 ONE Stop: 05/03/24 01:39 Last Infusion: 05/03/24 02:18 Dose: Infused Documented By: Admin: 05/03/24 01:17 Dose: 250 mls/hr Documented By: YOKASTA Thiamine HCl (Thiamine Inj 100 Mg/Ml Vial 2 Ml) 100 mg IVP X1 ONE Stop: 05/02/24 23:38 Last Admin: 05/03/24 01:12 Dose: 100 mg Documented By: YOKASTA see above Consultations Consultation(s) initiated? (list below): No Diagnosis Differential diagnosis alcohol: other (hypertensive emergency, essential hypertension, methamphetamine overdose, Influenza, COVID, sepsis, rib fx, chest contusion, renal contusion, flank contusion, musculoskeletal strain) Most likely diagnosis given after review of the tests above:: Patient signed out AMA. Admission Indicated Admission indicated?: indicated Explain why admission is indicated or not indicated:: Admission criteria met, but the patient signed out AMA. Admission Request Was there a request for admission?: No Disposition Plan Disposition Plan: other (specify) (Patient signed out AMA.)
[2024-05-02 23:54] LABS: INR 1.1 (0.9-1.3); Lipase 24 U/L (12-53); Partial Thromboplastin Time 29.7 Seconds (22.0-36.0); Prothrombin Time 12.1 Seconds (9.0-12.2)
[2024-05-03] VITALS (7 sets, daily range): BP systolic 136–159; BP diastolic 84–110; PULSE 106–118; RESP 15–22; TEMP 36.9–37; O2SAT 92–94
[2024-05-03 00:05] LABS: Collection Type, Urine Clean Catch
[2024-05-03 00:31] LABS: Bilirubin,Urine Negative (Negative); Blood,Urine Trace (Negative); Clarity,Urine Clear (Clear/Hazy); Color,Urine Yellow (Lt Yel-Yel); Culture Indicated,Urine Not Indicated; Glucose, Urine Negative (Negative); Ketones,Urine 1+ (Negative); Leukocyte Esterase,Urine Negative (Negative); Nitrite,Urine Negative (Negative); Protein,Urine 1+ (Neg - Trace); RBC,Urine 2 /hpf (0-3); Specific Gravity,Urine 1.027 (1.001-1.035); Squamous Epithelial Cell,Urine 4 /hpf (0-5); WBC,Urine 3 /hpf (0-5)
[2024-05-03] MEDS: FOLIC ACID INJ 1 MG/0.2 ML IVP (01:05)
[2024-05-03] MEDS: cefTRIAXone 1,000 MG in SODIUM CHLORIDE 0.9% (Popper) 50 ML 100 MG IV (01:05)
[2024-05-03] MEDS: SODIUM CHLORIDE 0.9% 1000 ML 1,000 ML 999 ML IV ×2 (01:09→01:11)
[2024-05-03] MEDS: THIAMINE INJ 100 MG/ML VIAL 2 ML IVP (01:12)
[2024-05-03] MEDS: AZITHROMYCIN INJ 500 MG in SODIUM CHLORIDE 0.9% 250 ML 250 ML 250 MG IV (01:17)
[2024-05-03] MEDS: chlordiazePOXIDE HCl 25 MG CAPSULE 50 MG PO (01:18)
[2024-05-03 01:22] LABS: B-Type Natriuretic Peptide < 20 pg/mL (0-100)
[2024-05-03 01:22] LABS: HCG Qualitative,Urine Negative
[2024-05-03 01:24] LABS: Magnesium 1.9 mg/dL (1.6-2.6)
[2024-05-03 01:36] LABS: Procalcitonin 0.05 ng/ml (0.0-0.49)
[2024-05-03 02:23] LABS: Amphetamine/Methamp Scrn,U Positive (Negative); Barbiturate Screen,Urine Negative (Negative); Benzodiazepines Screen,Urine Positive (Negative); Benzoylecgonine Screen, Ur Negative (Negative); Fentanyl Screen,Urine Negative (Negative); Opiate Screen,Urine Negative (Negative); THC Screen,Urine Positive (Negative)
[2024-05-03] MEDS: hydrALAZINE INJ 20 MG/ML VIAL 10 MG IV (02:42)
[2024-05-03 04:04] LABS: LDH (Lactate Dehydrogenase) 230 U/L (120-246)
== END 2024-05-03 03:12 | disposition left against medical advice (07) ==
PROVIDERS: Physician Assistant; Emergency Provider Emergency Medicine; PCP Family Medicine
DX: A41.9 Sepsis, unspecified organism (principal); J18.9 Pneumonia, unspecified organism; F15.10 Other stimulant abuse, uncomplicated; F12.10 Cannabis abuse, uncomplicated; I16.1 Hypertensive emergency; Z53.29 Procedure and treatment not carried out because of patient's decision for other reasons; R51.9 Headache, unspecified
CPT/HCPCS: 36415; 70450; 71045; 80053; 80307; 80320; 81001; 81025; 83605; 83615; 83690; 83735; 83880; 84100; 84145; 84484; 85025; 85610; 85730; 87040; 93005; 96365; 96375; 99291; J0360; J0456; J0696; J3411; J3490; J7030; J7050; A9270; G0480

== ENCOUNTER 2024-06-03 21:51 | Emergency (ER) | payer MEDICAID, SELFPAY ==
[2024-06-03 21:52] VITALS: BMI 28.7
[2024-06-03 23:11] VITALS: BP 126/90; PULSE 89; RESP 16; TEMP 36.8; O2SAT 98
--- NOTE | 2024-06-03 23:36 | EDNOTE_ITS ---
ED Dental RME/HPI General Chief complaint: Dental/Oral/Throat Stated complaint: JAW PAIN, POSSIBLE LOCK JAW Time Seen by Provider: 06/03/24 22:12 Arrival date/time: 06/03/24 21:51 Limitations: no limitations RME / HPI RME / HPI Narrative: 48-year-old female with no reported past medical history presents for evaluation of jaw pain x 3 days. Patient reports diffuse dental and jaw pain that has been progressively worsening. She reports recent tooth loss her right upper incisor. Patient denies fever, chills, chest pain, neck pain, ear pain, difficulty swallowing. Patient reports she has an appointment with a dentist this week. Denies history of lockjaw. Medical records show last tetanus in 2023. Relieving factors: nothing Exacerbating factors: chewing Context: history of dental caries and poor dental care Related Data Home Medications ?Medication ?Instructions ?Recorded ?Confirmed clonazepam 1 mg tablet (Klonopin) 1 mg PO QDAY #0 tabs 04/17/15 Previous Rx's ?Medication ?Instructions ?Recorded ibuprofen 600 mg tablet 1 tab PO Q8HR PRN pain #30 t abs 12/06/16 etodolac 400 mg tablet 400 mg PO BID PRN pain #30 t abs 07/29/19 ibuprofen 800 mg tablet 800 mg PO TID PRN pain #30 t abs 06/18/20 ofloxacin 0.3 % ear drops 10 drp otic (ear) BID #5 mL 03/02/21 diclofenac sodium 1 % topical gel 2 g topical QID #30 grams 11/07/21 ibuprofen 800 mg tablet 800 mg PO TID PRN pain #30 t abs 02/25/22 ibuprofen 600 mg tablet 600 mg PO TID PRN pain #14 t abs 08/02/23 baclofen 10 mg tablet 10 mg PO BID PRN muscle spas m #30 08/24/23 tabs lidocaine 5 % topical patch 2 patch topical QDAY #30 e a 09/18/23 (Lidoderm) ibuprofen 600 mg tablet 600 mg PO Q8H PRN pain #20 t abs 11/24/23 ibuprofen 800 mg tablet 800 mg PO TID PRN pain #30 t abs 01/10/24 ibuprofen 800 mg tablet 800 mg PO TID PRN pain #30 t abs 01/27/24 ibuprofen 600 mg tablet 600 mg PO Q6H PRN pain #30 t abs 05/03/24 acetaminophen 325 mg tablet (Pain 325 mg PO QID PRN pa in #30 tabs 06/03/24 Relief (acetaminophen)) ibuprofen 800 mg tablet 800 mg PO Q8H PRN pain #30 t abs 06/03/24 clindamycin HCl 300 mg capsule 300 mg PO TID 7 days #2 1 caps 06/06/24 hydrocodone 5 mg-acetaminophen 325 1 tab PO BID PRN pa in #8 tabs 06/06/24 mg tablet Allergies Allergy/AdvReac Type Severity Reaction Status Date / Time lurasidone (From Latuda) Allergy Severe Hives Verified 06/06/24 08:42 Penicillins Allergy Severe Rash Verified 06/06/24 08:42 Milk Containing Products Allergy Rash Verified 06/06/24 08:42 (Dairy) Bee Stings Allergy Severe ANAPHYLACTIC Uncoded 06/06/24 08:42 SHOCK Review of Systems Constitutional Constitutional: Denies chills, Denies fever(s), Denies headache(s), Reports poor appetite, Denies lethargy and Denies night sweats Eyes Eyes: Denies blurry vision and Denies change in vision ENT Ears, Nose, Mouth, and Throat: Denies bleeding gums, Reports dental pain (diffuse. ), Denies dysphagia, Denies otalgia, Denies halitosis, Denies headache(s), Denies neck pain, Denies sore throat, Denies throat swelling, Denies tongue swelling and Denies vertigo Cardiovascular Cardiovascular: Denies chest pain, Denies dyspnea and Denies leg edema Respiratory Respiratory: Denies cough, Denies dyspnea and Denies hemoptysis Gastrointestinal Gastrointestinal: Denies dysphagia, Denies nausea and Denies vomiting Musculoskeletal Musculoskeletal: Denies back pain, Denies joint swelling and Denies neck pain Integumentary/Breasts Skin/Breast: Denies rash and Denies wounds Neurologic Neurologic: Denies headache(s) and Denies vertigo Allergic/Immunologic Allergic/Immunologic: Denies throat swelling and Denies tongue swelling Past Medical History Past Medical History NEUROLOGIC: Negative Neurological Disorders CARDIAC: Negative Cardiac Disorders or Congestive Heart Failure RESPIRATORY: Positive Asthma; Negative Chronic Obstructive Pulmonary Disease (COPD) GENITOURINARY: Negative Renal Disease ENDOCRINE: Negative Diabetes Mellitus Type 1 or Diabetes Mellitus Type 2 HEMATOLOGIC: Negative Sickle Cell Disease PSYCHO/SOCIAL: Positive Bipolar Disorder Social History SMOKING STATUS: Current every day smoker ED Exam General Limitations: Present no limitations General appearance: Present alert and in no apparent distress Head Head exam: Present atraumatic Eye Eye exam: Present normal appearance and EOMI; Absent scleral icterus ENT ENT exam: Present TM's normal bilaterally Expanded ENT Exam External ear exam: Absent mastoid tenderness or pain with movement Nose exam: Absent sinus tenderness or crepitus Mouth exam: Present tongue normal; Absent drooling, trismus or lip swelling Teeth exam: Present dental caries (diffuse dental caries upper and lower with diffuse edentulism. ), dental tenderness # and other (no focal gingival swelling or erythema. FROM of mandible. no focal mandibular tenderness to palpation with no fluctuance. ); Absent gingival swelling Throat exam: Absent tonsillar erythema, tonsillomegaly, tonsillar exudate, R peritonsillar mass, L peritonsillar mass or muffled voice Neck Neck exam: Present normal inspection and full ROM; Absent meningismus Chest Chest inspection: Present normal inspection and symmetric chest wall rise Respiratory Respiratory exam: Present normal lung sounds bilaterally; Absent respiratory distress, wheezes or stridor Cardiovascular Cardiovascular exam: Present regular rate and +S1 Abdominal Exam Abdominal exam: Present soft; Absent distention Extremities Exam Extremities exam: Present normal inspection and full ROM Back Exam Back exam: Present normal inspection and full ROM Neurological Exam Neurological exam: Present alert and normal gait Psychiatric Psychiatric exam: Present normal affect Skin Skin exam: Present warm, dry and normal color Course Quality Measures none Orders Category Date Time Status HYDROcodone*/APAP 5/325 [[place] 5/325] Med 06/03/24 23:35 Discontinued 1 tab PO X1 ONE Ketorolac Inj [Toradol Inj] Med 06/03/24 23:35 Discontinued 30 mg IM X1 ONE Vital Signs Vital signs: Vital Signs Temperature 98.2 F 06/03/24 23:11 Pulse Rate 89 06/03/24 23:11 Respiratory Rate 16 06/03/24 23:11 Blood Pressure 126/90 H 06/03/24 23:11 Pulse Oximetry (%) 98 06/03/24 23:11 Oxygen Delivery Method Room Air 06/03/24 23:11 Pulse ox 98% on room air, within normal limits. Dental / Oral MDM Narrative MDM Narrative:: 48-year-old female presented for evaluation of diffuse dental pain. Vital signs reassuring. Physical exam significant for diffuse dental caries and an dentulous him. Fortunately no trismus on examination with no fluctuance or tend erness to palpation of jaw. Patient's tetanus is up to date. No focal areas of erythema or swelling to gingiva therefore less concern for gingival abscess at this time. I discussed with the patient likely needing to start antibiotics but using shared decision making deferred starting them at this time as she has an appointment with her dentist in a few days. Less concern for mandibular osteomy elitis given reassuring vital signs and clinical presentation therefore imaging was deferred at this time. I offered a dental block at the site of her recent tooth loss but the patient declined at this time. Patient was given analgesics in the department which improved her symptoms. I stressed that she needs to follow-up with dentist as planned for further management of her oral concerns. I stressed that she needs to follow good oral hygiene practices. Return precautions were provided. Patient was stable at the time of discharge. Patient data External records reviewed:: [facility] previous records Clinical information provided by:: patient Social determinants that could affect healthcare access:: none Patient has the following chronic illnesses:: None reported. How is presenting disease/condition affected by chronic disease/condition?: no chronic disease Evaluation data The following diagnostics were reviewed and interpreted by me:: other (specify) Lab and/or radiology exams considered but not ordered:: Considered not ordered. Interpretation Summary: Considered not ordered. Medications / Prescriptions Medications or Prescriptions considered but not ordered:: Rx given. Medication administrations:: Medication Administration History Discontinued Medications Hydrocodone Bitart/Acetaminophen (Hydrocodone/Apap 5/325 Tablet) 1 tab PO X1 ONE Stop: 06/03/24 23:36 Last Admin: 06/03/24 23:43 Dose: 1 tab Documented By: RUPA Ketorolac Tromethamine (Ketorolac Inj 60 Mg/2 Ml Vial) 30 mg IM X1 ONE Stop: 06/03/24 23:36 Last Admin: 06/03/24 23:43 Dose: 30 mg Documented By: RUPA Rx given. Consultations Consultation(s) initiated? (list below): No Diagnosis Dental Differential Diagnosis: gingival abscess, dental caries, toothache, dental abscess and fracture of tooth Most likely diagnosis given after review of the tests above:: Diffuse dental caries, tooth pain, jaw pain. Admission Indicated Admission indicated?: not indicated Admission Request Was there a request for admission?: No Disposition Plan Disposition Plan: Discharge Discharge Attestation Discharge Attestation: The patient and all family members were given an opportunity to ask questions and understood the discharge instructions. Discharge instructions specifically effects, indications for sooner follow up or return to the emergency department, and the expected course of current diagnosis. Patient condition: Stable Discharge Plan Plan Patient Disposition: HOME (Self Care) Disposition Comment: stable Prescriptions/Referrals Prescriptions/Med Rec: New ibuprofen 800 mg tablet 800 mg PO Q8H PRN (Reason: pain) Qty: 30 0RF acetaminophen [Pain Relief (acetaminophen)] 325 mg tablet 325 mg PO QID PRN (Reason: pain) Qty: 30 0RF No Action clonazepam [Klonopin] 1 MG tablet 1 mg PO QDAY Qty: 0 ibuprofen 600 MG tablet 1 tab PO Q8HR PRN (Reason: pain) Qty: 30 0RF ibuprofen 800 mg tablet 800 mg PO TID PRN (Reason: pain) Qty: 30 0RF ofloxacin 0.3 % drops 10 drp otic (ear) BID Qty: 5 0RF etodolac 400 mg tablet 400 mg PO BID PRN (Reason: pain) Qty: 30 0RF diclofenac sodium 1 % gel 2 g topical QID Qty: 30 0RF Rx Instructions: apply to single elbow, wrist or hand; for hand includes palm/fingers/back of hand ibuprofen 800 mg tablet 800 mg PO TID PRN (Reason: pain) Qty: 30 0RF lidocaine [Lidoderm] 5 % adhesive patch,medicated 2 patch topical QDAY Qty: 30 0RF Rx Instructions: leave on most painful area for up to 12 hrs ibuprofen 800 mg tablet 800 mg PO TID PRN (Reason: pain) Qty: 30 0RF ibuprofen 600 mg tablet 600 mg PO TID PRN (Reason: pain) Qty: 14 0RF baclofen 10 mg tablet 10 mg PO BID PRN (Reason: muscle spasm) Qty: 30 0RF ibuprofen 600 mg tablet 600 mg PO Q8H PRN (Reason: pain) Qty: 20 0RF ibuprofen 800 mg tablet 800 mg PO TID PRN (Reason: pain) Qty: 30 0RF ibuprofen 600 mg tablet 600 mg PO Q6H PRN (Reason: pain) Qty: 30 0RF clindamycin HCl 300 mg capsule 300 mg PO TID 7 Days Qty: 21 0RF hydrocodone-acetaminophen 5-325 mg tablet 1 tab PO BID MDD 10 PRN (Reason: pain) Qty: 8 0RF Referrals: No Primary/Family,Physician [Referring Provider] - In 1 week Problem List Clinical Impression: Dental caries, Jaw pain Impression comment: Take Tylenol or ibuprofen every 8 hours as needed for pain. Follow-up with dentist as planned this week. Use good oral hygiene care and hydrate well. Return to the ED if your symptoms worsen or change. Patient/Caregiver Discharge Instructions Education Materials: ED Dental Pain, ED Dental Cavity Print Language: Kyrgyz Stand Alone Forms: Ashley Award Info., Patient Portal Info Letter PA/RESISTANCE WELDER Supervising Physician PA/RESISTANCE WELDER Supervising Physician: Dr. Abrams
[2024-06-03] MEDS: KETOROLAC INJ 60 MG/2 ML VIAL 30 MG IM (23:43)
[2024-06-03] MEDS: HYDROcodone/APAP 5/325 TABLET 1 TAB PO (23:43)
== END 2024-06-03 23:49 | disposition home or self-care (01) ==
PROVIDERS: Emergency Provider Emergency Medicine; PCP Family Medicine
DX: R68.84 Jaw pain (principal); K02.9 Dental caries, unspecified
CPT/HCPCS: 96372; 99283; J1885; A9270

== ENCOUNTER 2024-06-06 08:39 | Emergency (ER) | payer MEDICAID, SELFPAY ==
[2024-06-06 08:40] VITALS: BMI 30.7
[2024-06-06 08:49] VITALS: BP 125/94; PULSE 108; RESP 16; TEMP 36.7; O2SAT 98
--- NOTE | 2024-06-06 09:00 | EDNOTE_ITS ---
<Statement entered by Janette Andrew MD - 06/09/24 06:59> As co-signing physician, I was present and available for consult prn. I concur with the plan and care as documented by the midlevel provider. ED Ear RME/HPI General Chief complaint: Ear Stated complaint: RIGHT EAR & JAW PAIN Time Seen by Provider: 06/06/24 08:43 Arrival date/time: 06/06/24 08:39 48-year-old female presents to the emergency department today for complaints of right ear pain and right dental pain patient was here 3 days ago for the same Limitations: no limitations Related Data Home Medications ?Medication ?Instructions ?Recorded ?Confirmed clonazepam 1 mg tablet (Klonopin) 1 mg PO QDAY #0 tabs 04/17/15 Previous Rx's ?Medication ?Instructions ?Recorded ibuprofen 600 mg tablet 1 tab PO Q8HR PRN pain #30 t abs 12/06/16 etodolac 400 mg tablet 400 mg PO BID PRN pain #30 t abs 07/29/19 ibuprofen 800 mg tablet 800 mg PO TID PRN pain #30 t abs 06/18/20 ofloxacin 0.3 % ear drops 10 drp otic (ear) BID #5 mL 03/02/21 diclofenac sodium 1 % topical gel 2 g topical QID #30 grams 11/07/21 ibuprofen 800 mg tablet 800 mg PO TID PRN pain #30 t abs 02/25/22 ibuprofen 600 mg tablet 600 mg PO TID PRN pain #14 t abs 08/02/23 baclofen 10 mg tablet 10 mg PO BID PRN muscle spas m #30 08/24/23 tabs lidocaine 5 % topical patch 2 patch topical QDAY #30 e a 09/18/23 (Lidoderm) ibuprofen 600 mg tablet 600 mg PO Q8H PRN pain #20 t abs 11/24/23 ibuprofen 800 mg tablet 800 mg PO TID PRN pain #30 t abs 01/10/24 ibuprofen 800 mg tablet 800 mg PO TID PRN pain #30 t abs 01/27/24 ibuprofen 600 mg tablet 600 mg PO Q6H PRN pain #30 t abs 05/03/24 acetaminophen 325 mg tablet (Pain 325 mg PO QID PRN pa in #30 tabs 06/03/24 Relief (acetaminophen)) ibuprofen 800 mg tablet 800 mg PO Q8H PRN pain #30 t abs 06/03/24 clindamycin HCl 300 mg capsule 300 mg PO TID 7 days #2 1 caps 06/06/24 hydrocodone 5 mg-acetaminophen 325 1 tab PO BID PRN pa in #8 tabs 06/06/24 mg tablet Allergies Allergy/AdvReac Type Severity Reaction Status Date / Time lurasidone (From Latuda) Allergy Severe Hives Verified 06/06/24 08:42 Penicillins Allergy Severe Rash Verified 06/06/24 08:42 Milk Containing Products Allergy Rash Verified 06/06/24 08:42 (Dairy) Bee Stings Allergy Severe ANAPHYLACTIC Uncoded 06/06/24 08:42 SHOCK Review of Systems Review of Systems Systems Reviewed: All systems reviewed, normal except as documented Constitutional Constitutional: Reports system reviewed and no additional complaints, except as documented, Denies fever(s) and Denies headache(s) Eyes Eyes: Reports system reviewed and no additional complaints, except as documented and Denies blurry vision ENT Ears, Nose, Mouth, and Throat: Reports system reviewed and no additional complaints, except as documented, Reports dental pain, Reports facial pain, Denies headache(s), Reports mouth pain, Denies nasal congestion and Denies nasal discharge Cardiovascular Cardiovascular: Reports system reviewed and no additional complaints, except as documented, Denies chest pain and Denies dyspnea Respiratory Respiratory: Reports system reviewed and no additional complaints, except as documented, Denies chest congestion, Denies cough and Denies dyspnea Gastrointestinal Gastrointestinal: Reports system reviewed and no additional complaints, except as documented and Denies abdominal pain Integumentary/Breasts Skin/Breast: Reports system reviewed and no additional complaints, except as documented and Denies rash Neurologic Neurologic: Reports system reviewed and no additional complaints, except as documented, Reports as per HPI and Denies headache(s) Past Medical History Past Medical History NEUROLOGIC: Negative Neurological Disorders CARDIAC: Negative Cardiac Disorders or Congestive Heart Failure RESPIRATORY: Positive Asthma; Negative Chronic Obstructive Pulmonary Disease (COPD) GENITOURINARY: Negative Renal Disease ENDOCRINE: Negative Diabetes Mellitus Type 1 or Diabetes Mellitus Type 2 HEMATOLOGIC: Negative Sickle Cell Disease PSYCHO/SOCIAL: Positive Bipolar Disorder Social History SMOKING STATUS: Current every day smoker ED Exam General Limitations: Present no limitations General appearance: Present alert and in no apparent distress Head Head exam: Present atraumatic, normocephalic and normal inspection Eye Eye exam: Present normal appearance, PERRL and EOMI; Absent conjunctival injection ENT ENT exam: Present mucous membranes moist and other (Poor dentition, gingival pain and swelling) Neck Neck exam: Present normal inspection, full ROM and trachea midline Chest Chest inspection: Present normal inspection and symmetric chest wall rise Respiratory Respiratory exam: Present normal lung sounds bilaterally Cardiovascular Cardiovascular exam: Present regular rate, normal rhythm and normal heart sounds Abdominal Exam Abdominal exam: Present soft and normal bowel sounds Extremities Exam Extremities exam: Present normal inspection and full ROM Back Exam Back exam: Present normal inspection and full ROM Neurological Exam Neurological exam: Present alert, oriented X3 and CN II-XII intact Psychiatric Psychiatric exam: Present normal affect and normal mood Skin Skin exam: Present warm, dry, intact and normal color Course Quality Measures none Vital Signs Vital signs: Vital Signs Temperature 98.1 F 06/06/24 08:49 Pulse Rate 108 H 06/06/24 08:49 Respiratory Rate 16 06/06/24 08:49 Blood Pressure 125/94 H 06/06/24 08:49 Pulse Oximetry (%) 98 06/06/24 08:49 Oxygen Delivery Method Room Air 06/06/24 08:49 O2 saturation 98% room air within normal limits Ear Patient data External records reviewed:: [facility] previous records Clinical information provided by:: patient Social determinants that could affect healthcare access:: mental health Patient has the following chronic illnesses:: See history How is presenting disease/condition affected by chronic disease/condition?: uneffected by Evaluation data The following diagnostics were reviewed and interpreted by me:: other (specify) (N/A) Lab and/or radiology exams considered but not ordered:: Consider not ordered Interpretation Summary: N/A Medications / Prescriptions Medications or Prescriptions considered but not ordered:: Given Medication administrations:: Given Consultations Consultation(s) initiated? (list below): No Diagnosis Most likely diagnosis given after review of the tests above:: Dental pain Admission Indicated Admission indicated?: not indicated Admission Request Was there a request for admission?: No Disposition Plan Disposition Plan: Discharge Discharge Attestation Discharge Attestation: The patient and all family members were given an opportunity to ask questions and understood the discharge instructions. Discharge instructions specifically effects, indications for sooner follow up or return to the emergency department, and the expected course of current diagnosis. Patient condition: Stable Medical Decision Making MDM Narrative MDM Narrative: 48-year-old female presents to the emergency department today for complaints of right ear pain and right dental pain patient was here 3 days ago for the same On exam patient is no bruising or swelling no difficulty breathing On exam patient's ear exam is normal On exam patient has dental caries and dental pain and gingival swelling Patient be treated with course of antibiotics Patient discharged home in no distress to follow-up with dentist in the next 24 to 48 hours and for any worsening symptoms to return to the ER immediately Differential Diagnosis Differential Diagnosis: Dental pain, dental abscess, gingival abscess, gingival Medical Records Medical records reviewed: Yes I reviewed the patient's medical records. Discharge Plan Plan Patient Disposition: HOME (Self Care) Disposition Comment: Stable Prescriptions/Referrals Prescriptions/Med Rec: New clindamycin HCl 300 mg capsule 300 mg PO TID 7 Days Qty: 21 0RF hydrocodone-acetaminophen 5-325 mg tablet 1 tab PO BID MDD 10 PRN (Reason: pain) Qty: 8 0RF No Action clonazepam [Klonopin] 1 MG tablet 1 mg PO QDAY Qty: 0 ibuprofen 600 MG tablet 1 tab PO Q8HR PRN (Reason: pain) Qty: 30 0RF ibuprofen 800 mg tablet 800 mg PO TID PRN (Reason: pain) Qty: 30 0RF ofloxacin 0.3 % drops 10 drp otic (ear) BID Qty: 5 0RF etodolac 400 mg tablet 400 mg PO BID PRN (Reason: pain) Qty: 30 0RF diclofenac sodium 1 % gel 2 g topical QID Qty: 30 0RF Rx Instructions: apply to single elbow, wrist or hand; for hand includes palm/fingers/back of hand ibuprofen 800 mg tablet 800 mg PO TID PRN (Reason: pain) Qty: 30 0RF lidocaine [Lidoderm] 5 % adhesive patch,medicated 2 patch topical QDAY Qty: 30 0RF Rx Instructions: leave on most painful area for up to 12 hrs ibuprofen 800 mg tablet 800 mg PO TID PRN (Reason: pain) Qty: 30 0RF ibuprofen 800 mg tablet 800 mg PO Q8H PRN (Reason: pain) Qty: 30 0RF acetaminophen [Pain Relief (acetaminophen)] 325 mg tablet 325 mg PO QID PRN (Reason: pain) Qty: 30 0RF ibuprofen 600 mg tablet 600 mg PO TID PRN (Reason: pain) Qty: 14 0RF baclofen 10 mg tablet 10 mg PO BID PRN (Reason: muscle spasm) Qty: 30 0RF ibuprofen 600 mg tablet 600 mg PO Q8H PRN (Reason: pain) Qty: 20 0RF ibuprofen 800 mg tablet 800 mg PO TID PRN (Reason: pain) Qty: 30 0RF ibuprofen 600 mg tablet 600 mg PO Q6H PRN (Reason: pain) Qty: 30 0RF Problem List Clinical Impression: Jaw pain, Ear pain, right Patient/Caregiver Discharge Instructions Education Materials: ED Dental Pain Additional Instructions: Please follow up with your primary care doctor in the next 24-48hrs for any worsening symptoms return here immediately Print Language: Thai Stand Alone Forms: Ashley Award Info., Patient Portal Info Letter PA/MECHANICAL EQUIPMENT SALES ENGINEER Supervising Physician PA/MECHANICAL EQUIPMENT SALES ENGINEER Supervising Physician: Dr. andrew
== END 2024-06-06 09:11 | disposition home or self-care (01) ==
LOC: SERX 09:09
PROVIDERS: Emergency Provider Emergency Medicine; PCP Family Medicine
DX: K02.9 Dental caries, unspecified (principal); H92.01 Otalgia, right ear
CPT/HCPCS: 99281

== ENCOUNTER 2024-09-17 10:21 | Emergency (ER) | payer MEDICAID, SELFPAY ==
[2024-09-17 10:22] VITALS: BMI 32.3
[2024-09-17 10:44] VITALS: BP 155/112; PULSE 94; RESP 18; TEMP 36.6; O2SAT 98
--- NOTE | 2024-09-17 10:47 | XR_ITS ---
Examination: CT maxillofacial, without intravenous contrast. 2-D sagittal reconstructions. 3-D reconstructions. Date and time of exam:September 17, 2024 1101 hours INDICATIONS: Ground-level fall today with injury to the face, facial pain left ureter pain CTDI: vol (mGy):24.4 DLP: (mGycm):404 Technique: Multiple axial images of maxillofacial region, 3.0 mm slice thickness. 2-D sagittal and coronal reconstructions. 3-D reconstructions. Low dose protocols were performed. One or more of the following dose reduction techniques were used; automated exposure control, adjustment of the mA and/or KV according to patient size, use of iterative reconstruction technique. Findings: Frontal bone frontal sinuses intact. Orbital rims intact No nasal bone fracture. No depression zygomatic arches. Pterygoid plates maxilla and the mandible intact IMPRESSION: No acute facial fracture.
--- NOTE | 2024-09-17 10:47 | XR_ITS ---
Examination: CT brain head without contrast. 2-D sagittal coronal reconstructions Date and time of exam:September 17, 2024 1101 hours Comparison May 02, 2024 INDICATIONS: Ground-level fall this morning with injury to the head, head pain COMPARISON: May 02, 2024 CTDI: vol (mGy):50.3 DLP: (mGycm):974 Technique: Multiple CT axial sections of the brain have been obtained, 5 mm slice thickness. Contrast has not been administered. 2-D sagittal, coronal reconstructions have been obtained Low dose protocols were performed. One or more of the following dose reduction techniques were used; automated exposure control, adjustment of the mA and/or KV according to patient size, use of iterative reconstruction technique. Findings: No significant ventricular enlargement. Intra-axial or extra-axial hemorrhage density is not seen. No mass effect or midline shift Basal cisterns are not remarkable. Fourth ventricle is midline. Cranial vault intact. Impression: Negative for acute hemorrhage, mass effect or midline shift
--- NOTE | 2024-09-17 10:48 | EDNOTE_ITS ---
ED Fall Injury RME/HPI General Chief Complaint: Fall Stated Complaint: FELL IN SHOWER, HIT L) JAW, UNABLE TO OPEN Time Seen by Provider: 09/17/24 10:44 Source: patient Arrival date/time: 09/17/24 10:21 48-year-old female with no known medical history presents to the emergency room with a chief complaint of tenderness and pain to her left jaw as well as a headache after falling in the shower yesterday afternoon Mode of arrival: ambulatory Limitations: no limitations Related Data Home Medications ?Medication ?Instructions ?Recorded ?Confirmed clonazepam 1 mg tablet (Klonopin) 1 mg PO QDAY #0 tabs 04/17/15 Previous Rx's ?Medication ?Instructions ?Recorded ibuprofen 600 mg tablet 1 tab PO Q8HR PRN pain #30 t abs 12/06/16 etodolac 400 mg tablet 400 mg PO BID PRN pain #30 t abs 07/29/19 ibuprofen 800 mg tablet 800 mg PO TID PRN pain #30 t abs 06/18/20 ofloxacin 0.3 % ear drops 10 drp otic (ear) BID #5 mL 03/02/21 diclofenac sodium 1 % topical gel 2 g topical QID #30 grams 11/07/21 ibuprofen 800 mg tablet 800 mg PO TID PRN pain #30 t abs 02/25/22 ibuprofen 600 mg tablet 600 mg PO TID PRN pain #14 t abs 08/02/23 baclofen 10 mg tablet 10 mg PO BID PRN muscle spas m #30 08/24/23 tabs lidocaine 5 % topical patch 2 patch topical QDAY #30 e a 09/18/23 (Lidoderm) ibuprofen 600 mg tablet 600 mg PO Q8H PRN pain #20 t abs 11/24/23 ibuprofen 800 mg tablet 800 mg PO TID PRN pain #30 t abs 01/10/24 ibuprofen 800 mg tablet 800 mg PO TID PRN pain #30 t abs 01/27/24 ibuprofen 600 mg tablet 600 mg PO Q6H PRN pain #30 t abs 05/03/24 acetaminophen 325 mg tablet (Pain 325 mg PO QID PRN pa in #30 tabs 06/03/24 Relief (acetaminophen)) ibuprofen 800 mg tablet 800 mg PO Q8H PRN pain #30 t abs 06/03/24 hydrocodone 5 mg-acetaminophen 325 1 tab PO BID PRN pa in #8 tabs 06/06/24 mg tablet ibuprofen 800 mg tablet 800 mg PO Q8H #14 tabs 09/17 Allergies Allergy/AdvReac Type Severity Reaction Status Date / Time lurasidone (From Latuda) Allergy Severe Hives Verified 09/17/24 10:25 Penicillins Allergy Severe Rash Verified 09/17/24 10:25 Milk Containing Products Allergy Rash Verified 09/17/24 10:25 (Dairy) Bee Stings Allergy Severe ANAPHYLACTIC Uncoded 09/17/24 10:25 SHOCK Review of Systems Review of Systems Systems Reviewed: All systems reviewed, normal except as documented Constitutional Constitutional: Reports system reviewed and no additional complaints, except as documented, Denies fatigue, Denies fever(s), Denies headache(s) and Denies weakness Eyes Eyes: Reports system reviewed and no additional complaints, except as documented, Denies blurry vision and Denies change in vision ENT Ears, Nose, Mouth, and Throat: Reports system reviewed and no additional complaints, except as documented, Denies otalgia, Denies headache(s), Denies nasal congestion, Denies throat swelling and Denies vertigo Cardiovascular Cardiovascular: Reports system reviewed and no additional complaints, except as documented, Denies chest pain, Denies dyspnea and Denies dyspnea on exertion Respiratory Respiratory: Reports system reviewed and no additional complaints, except as documented, Denies chest congestion, Denies cough, Denies dyspnea, Denies dyspnea on exertion and Denies wheezing Gastrointestinal Gastrointestinal: Reports system reviewed and no additional complaints, except as documented, Denies abdominal pain, Denies cramping, Denies nausea and Denies vomiting Genitourinary Genitourinary: Reports system reviewed and no additional complaints, except as documented Musculoskeletal Musculoskeletal: Reports system reviewed and no additional complaints, except as documented and Denies back pain Integumentary/Breasts Skin/Breast: Reports system reviewed and no additional complaints, except as documented and Denies wounds Neurologic Neurologic: Reports system reviewed and no additional complaints, except as documented, Denies confusion, Denies headache(s), Denies lack of coordination, Denies vertigo and Denies weakness Psychiatric Psychiatric: Reports system reviewed and no additional complaints, except as documented, Denies anxiety, Denies confusion, Denies depression, Denies paranoia, Denies suicidal ideation and Denies tactile hallucinations Endocrine Endocrine: Reports system reviewed and no additional complaints, except as documented and Denies fatigue Hematologic/Lymphatic Hematologic/Lymphatic: Reports system reviewed and no additional complaints, except as documented and Denies lymphadenopathy Allergic/Immunologic Allergic/Immunologic: Reports system reviewed and no additional complaints, except as documented, Denies throat swelling, Denies urticaria and Denies wheezing Past Medical History Past Medical History NEUROLOGIC: Negative Neurological Disorders CARDIAC: Negative Cardiac Disorders or Congestive Heart Failure RESPIRATORY: Positive Asthma; Negative Chronic Obstructive Pulmonary Disease (COPD) GENITOURINARY: Negative Renal Disease ENDOCRINE: Negative Diabetes Mellitus Type 1 or Diabetes Mellitus Type 2 HEMATOLOGIC: Negative Sickle Cell Disease PSYCHO/SOCIAL: Positive Bipolar Disorder Social History SMOKING STATUS: Current every day smoker ED Exam General Limitations: Present no limitations General appearance: Present alert and in no apparent distress Head Head exam: Present atraumatic, normocephalic and normal inspection Expanded Head Exam Head exam physical: Absent laceration, abrasion, contusion, hematoma, raccoon eyes, Husain's sign, tenderness of temporal artery, CSF rhinorrhea or CSF otorrhea Eye Eye exam: Present normal appearance, PERRL and EOMI ENT ENT exam: Present normal exam, normal oropharynx and mucous membranes moist Neck Neck exam: Present normal inspection, full ROM and trachea midline Chest Chest inspection: Present normal inspection and symmetric chest wall rise Respiratory Respiratory exam: Present normal lung sounds bilaterally Cardiovascular Cardiovascular exam: Present regular rate, normal rhythm and normal heart sounds Abdominal Exam Abdominal exam: Present soft and normal bowel sounds Extremities Exam Extremities exam: Present normal inspection and full ROM Back Exam Back exam: Present normal inspection and full ROM Neurological Exam Neurological exam: Present alert, oriented X3 and CN II-XII intact Psychiatric Psychiatric exam: Present normal affect and normal mood Skin Skin exam: Present warm, dry, intact and normal color Course Quality Measures none Orders Category Date Time Status CT facial bones wo con Stat Exams 09/17/24 10:[address] head/brain wo con Stat Exams 09/17/24 10:47 Completed HYDROcodone*/APAP 5/325 [[place] 5/325] Med 09/17/24 11:33 Discontinued 1 tab PO X1 ONE Vital Signs Vital signs: Vital Signs Temperature 97.8 F 09/17/24 10:44 Pulse Rate 94 09/17/24 10:44 Respiratory Rate 18 09/17/24 10:44 Blood Pressure 155/112 H 09/17/24 10:44 Pulse Oximetry (%) 98 09/17/24 10:44 Oxygen Delivery Method Room Air 09/17/24 10:44 Fall MDM Narrative MDM Narrative:: 48-year-old female with no known medical history presents to the emergency room with a chief complaint of tenderness and pain to her left jaw as well as a headache after falling in the shower yesterday afternoon. Physical examination shows some tenderness to her left mandible jaw area. The patient has full range of motion and is able to open her mouth and close. There is no trismus. A CT of the head and brain was completed and was negative for any acute findings. A CT of the facial bones was completed and was negative for any acute findings Patient was discharged and educated to follow-up with primary care provider in the next 24 to 48 hours and return to the emergency room for any evidence of worsening signs or symptoms Patient data External records reviewed:: [facility] previous records Clinical information provided by:: patient Social determinants that could affect healthcare access:: none Patient has the following chronic illnesses:: No chronic illness How is presenting disease/condition affected by chronic disease/condition?: no chronic disease Evaluation data The following diagnostics were reviewed and interpreted by me:: lab results and radiology exam(s) Lab and/or radiology exams considered but not ordered:: Labs and radiology exams considered and ordered Interpretation Summary: CT head and brain-Findings: No significant ventricular enlargement. Intra-axial or extra-axial hemorrhage density is not seen. No mass effect or midline shift Basal cisterns are not remarkable. Fourth ventricle is midline. Cranial vault intact. Impression: Negative for acute hemorrhage, mass effect or midline shift CT facial bones-indings: Frontal bone frontal sinuses intact. Orbital rims intact No nasal bone fracture. No depression zygomatic arches. Pterygoid plates maxilla and the mandible intact IMPRESSION: No acute facial fracture. Medications / Prescriptions Medications or Prescriptions considered but not ordered:: No medication given Medication administrations:: Medication Administration History Discontinued Medications Hydrocodone Bitart/Acetaminophen (Hydrocodone/Apap 5/325 Tablet) 1 tab PO X1 ONE Stop: 09/17/24 11:34 Last Admin: 09/17/24 11:50 Dose: 1 tab Documented By: OA No medication given Consultations Consultation(s) initiated? (list below): No Diagnosis Fall Differential Diagnosis: other (Facial contusion/jaw fracture) Most likely diagnosis given after review of the tests above:: Facial contusion Admission Indicated Admission indicated?: not indicated Admission Request Was there a request for admission?: No Disposition Plan Disposition Plan: Discharge Discharge Attestation Discharge Attestation: The patient and all family members were given an opportunity to ask questions and understood the discharge instructions. Discharge instructions specifically effects, indications for sooner follow up or return to the emergency department, and the expected course of current diagnosis. Patient condition: Stable Discharge Plan Plan Patient Disposition: HOME (Self Care) Discharge Disposition comment: Stable Prescriptions/Referrals Prescriptions/Med Rec: New ibuprofen 800 mg tablet 800 mg PO Q8H Qty: 14 0RF No Action clonazepam [Klonopin] 1 MG tablet 1 mg PO QDAY Qty: 0 ibuprofen 600 MG tablet 1 tab PO Q8HR PRN (Reason: pain) Qty: 30 0RF ibuprofen 800 mg tablet 800 mg PO TID PRN (Reason: pain) Qty: 30 0RF ofloxacin 0.3 % drops 10 drp otic (ear) BID Qty: 5 0RF etodolac 400 mg tablet 400 mg PO BID PRN (Reason: pain) Qty: 30 0RF diclofenac sodium 1 % gel 2 g topical QID Qty: 30 0RF Rx Instructions: apply to single elbow, wrist or hand; for hand includes palm/fingers/back of hand ibuprofen 800 mg tablet 800 mg PO TID PRN (Reason: pain) Qty: 30 0RF lidocaine [Lidoderm] 5 % adhesive patch,medicated 2 patch topical QDAY Qty: 30 0RF Rx Instructions: leave on most painful area for up to 12 hrs ibuprofen 800 mg tablet 800 mg PO TID PRN (Reason: pain) Qty: 30 0RF ibuprofen 800 mg tablet 800 mg PO Q8H PRN (Reason: pain) Qty: 30 0RF acetaminophen [Pain Relief (acetaminophen)] 325 mg tablet 325 mg PO QID PRN (Reason: pain) Qty: 30 0RF ibuprofen 600 mg tablet 600 mg PO TID PRN (Reason: pain) Qty: 14 0RF baclofen 10 mg tablet 10 mg PO BID PRN (Reason: muscle spasm) Qty: 30 0RF ibuprofen 600 mg tablet 600 mg PO Q8H PRN (Reason: pain) Qty: 20 0RF ibuprofen 800 mg tablet 800 mg PO TID PRN (Reason: pain) Qty: 30 0RF ibuprofen 600 mg tablet 600 mg PO Q6H PRN (Reason: pain) Qty: 30 0RF hydrocodone-acetaminophen 5-325 mg tablet 1 tab PO BID MDD 10 PRN (Reason: pain) Qty: 8 0RF Referrals: No Primary/Family,Physician [Primary Care Provider] - In 1 week Problem List Clinical Impression: Contusion of face Patient/Caregiver Discharge Instructions Education Materials: ED Facial Contusion Additional Instructions: Please follow-up with your primary care provider in the next [address] of your head and brain was negative for any acute findings. Your CT of your facial bones was negative for any acute fractures. 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 Purcell
[2024-09-17] MEDS: HYDROcodone/APAP 5/325 TABLET 1 TAB PO (11:50)
== END 2024-09-17 11:58 | disposition home or self-care (01) ==
PROVIDERS: Emergency Provider Nurse Practitioner Family
DX: S00.83XA Contusion of other part of head, initial encounter (principal); W18.2XXA Fall in (into) shower or empty bathtub, initial encounter
CPT/HCPCS: 70450; 70486; 99283; A9270

== ENCOUNTER 2024-12-09 15:10 | Emergency (ER) | payer MEDICAID, SELFPAY ==
[2024-12-09 16:20] VITALS: BP 159/104; PULSE 104; RESP 20; TEMP 36.6; O2SAT 97
--- NOTE | 2024-12-09 17:42 | EDNOTE_ITS ---
ED Ear RME/HPI General Chief complaint: Ear Stated complaint: SEVERE L) EARACHE 12/07 Time Seen by Provider: 12/09/24 16:40 Arrival date/time: 12/09/24 15:10 RME / HPI RME / HPI Narrative: 48-year-old female with past medical history of a jaw fracture at the age of 15 with a resulting difficulty opening mouth, hearing loss, TMJ, complaining of left ear pain which has been ongoing for the past year however a lot worse since yesterday. Denies trouble swallowing, sore throat, fever, vomits. Related Data Home Medications ?Medication ?Instructions ?Recorded ?Confirmed clonazepam 1 mg tablet (Klonopin) 1 mg PO QDAY #0 tabs 04/17/15 Previous Rx's ?Medication ?Instructions ?Recorded ibuprofen 600 mg tablet 1 tab PO Q8HR PRN pain #30 t abs 12/06/16 etodolac 400 mg tablet 400 mg PO BID PRN pain #30 t abs 07/29/19 ibuprofen 800 mg tablet 800 mg PO TID PRN pain #30 t abs 06/18/20 ofloxacin 0.3 % ear drops 10 drp otic (ear) BID #5 mL 03/02/21 diclofenac sodium 1 % topical gel 2 g topical QID #30 grams 11/07/21 ibuprofen 800 mg tablet 800 mg PO TID PRN pain #30 t abs 02/25/22 ibuprofen 600 mg tablet 600 mg PO TID PRN pain #14 t abs 08/02/23 baclofen 10 mg tablet 10 mg PO BID PRN muscle spas m #30 08/24/23 tabs lidocaine 5 % topical patch 2 patch topical QDAY #30 e a 09/18/23 (Lidoderm) ibuprofen 600 mg tablet 600 mg PO Q8H PRN pain #20 t abs 11/24/23 ibuprofen 800 mg tablet 800 mg PO TID PRN pain #30 t abs 01/10/24 ibuprofen 800 mg tablet 800 mg PO TID PRN pain #30 t abs 01/27/24 ibuprofen 600 mg tablet 600 mg PO Q6H PRN pain #30 t abs 05/03/24 acetaminophen 325 mg tablet (Pain 325 mg PO QID PRN pa in #30 tabs 06/03/24 Relief (acetaminophen)) ibuprofen 800 mg tablet 800 mg PO Q8H PRN pain #30 t abs 06/03/24 hydrocodone 5 mg-acetaminophen 325 1 tab PO BID PRN pa in #8 tabs 06/06/24 mg tablet ibuprofen 800 mg tablet 800 mg PO Q8H #14 tabs 09/17 azithromycin 500 mg tablet See Rx Instructions PO .COM PLEX #3 12/09/24 tabs Allergies Allergy/AdvReac Type Severity Reaction Status Date / Time lurasidone (From Latuda) Allergy Severe Hives Verified 12/09/24 15:14 Penicillins Allergy Severe Rash Verified 12/09/24 15:14 Milk Containing Products Allergy Rash Verified 12/09/24 15:14 (Dairy) Bee Stings Allergy Severe ANAPHYLACTIC Uncoded 09/17/24 10:25 SHOCK ED Exam Narrative Physical exam: Constitutional: Patient alert and oriented. Well appearing. No acute distress. Not toxic appearing. Head: Normocephalic, atraumatic. Eyes: Periorbital regions bilaterally normal to inspection. Conjunctiva clear bilaterally. Sclera anicteric bilaterally. Pupils equal, round, reactive to light bilaterally. Extraocular movements intact bilaterally. Ears: External ears normal to inspection bilaterally. No mastoid tenderness bilaterally. Left EAC with cerumen impaction, sliver of TM visualized with erythema. EAC without edema or exudate bilaterally. Mouth/Throat: + left TMJ tenderness. Mucous membranes moist. No stridor or muffled voice. Uvula midline. Rise and fall of soft palate normal. No tonsillar edema or exudate. No peritonsillar fullness. + trismus (pt states this is chronic in nature for her) Handling secretions without difficulty. Airway widely patent. Neck: Supple. Trachea midline. No JVD. No nuchal rigidity. No midline tenderness or step-offs. Normal range of motion. No cervical adenopathy B/L. Respiratory: Normal effort. No accessory muscle use or respiratory distress. Lungs clear to auscultation bilaterally without rhonchi, wheezes, or crackles. Cardiovascular: RRR. Normal S1/S2. No murmurs or rubs. Radial pulses intact bilaterally. Abdomen: Soft. Non-distended. Non-tender throughout. No pulsatile mass. No guarding or rebound. Negative Lanier?s sign. Negative McBurney?s point tenderness. Negative Rovsing?s. Back: No midline tenderness or step-offs. No CVA tenderness to palpation bilaterally. Upper Extremities: No gross deformities. Lower Extremities: No gross deformities. No edema or calf tenderness. Neuro: Speech normal. No gross motor or sensory deficits to upper or lower extremities bilaterally. GCS 15. CN II?XII grossly intact. Skin: Warm, dry, normal color. Psych: Normal affect. Cooperative. Normal insight. Course Quality Measures none Orders Category Date Time Status Ketorolac Inj [Toradol Inj] Med 12/09/24 17:53 Discontinued 30 mg IM X1 ONE Vital Signs Vital signs: Vital Signs Temperature 97.8 F 12/09/24 16:20 Pulse Rate 104 H 12/09/24 16:20 Respiratory Rate 20 12/09/24 16:20 Blood Pressure 159/104 H 12/09/24 16:20 Pulse Oximetry (%) 97 12/09/24 16:20 Ear MDM Narrative MDM Narrative:: MDM Suspect: AOM complicated by cerumen impaction and TMJ acute exacerbation No traumatic e/o without signs of additional focal bacterial infection indicating tx, doubt BLOCK PAVER/parapharyngeal abscess/epiglottis given lack of mass effect in OP cavity (uvula midline, no muffled voice/stridor/tripoding/drooling, airway widely patent, tolerating secretions and PO without difficulty) No meningeal signs, nuchal rigidity, AMS, focal neuro signs, seizure to suggest meningitis or 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 Medication side effects and precautions discussed with the pt. Patient data External records reviewed:: [facility] previous records Clinical information provided by:: patient Social determinants that could affect healthcare access:: none Patient has the following chronic illnesses:: Loss of hearing, TMJ How is presenting disease/condition affected by chronic disease/condition?: caused by Evaluation data The following diagnostics were reviewed and interpreted by me:: other (specify) Lab and/or radiology exams considered but not ordered:: Labs and radiology considered, but not ordered as they were not clinically indicated at this time. Interpretation Summary: None performed Medications / Prescriptions Medications or Prescriptions considered but not ordered:: I considered prescription management (both outpatient prescriptions AND drug treatment in the ER) and decided that this was necessary and was prescribed as charted. Medication administrations:: Medication Administration History Discontinued Medications Ketorolac Tromethamine (Ketorolac Inj 30 Mg/Ml Vial) 30 mg IM X1 ONE Stop: 12/09/24 17:54 Last Admin: 12/09/24 18:09 Dose: 30 mg Documented By: THERESA As noted Consultations Consultation(s) initiated? (list below): No Diagnosis Ear Differential Diagnosis: otitis externa, otitis media, ruptured TM and cerumen impaction Most likely diagnosis given after review of the tests above:: Concern for cerumen impaction complicated by acute otitis media Admission Indicated Admission indicated?: not indicated Admission Request Was there a request for admission?: No Disposition Plan Disposition Plan: Discharge Discharge Attestation Discharge Attestation: The patient and all family members were given an opportunity to ask questions and understood the discharge instructions. Discharge instructions specifically effects, indications for sooner follow up or return to the emergency department, and the expected course of current diagnosis. Patient condition: Stable Discharge Plan Plan Patient condition on transfer: Stable Prescriptions/Referrals Prescriptions/Med Rec: New azithromycin 500 mg tablet See Rx Instructions .ROUTE .COMPLEX Qty: 3 0RF Rx Instructions: For 500 mg dose pack: take 500 mg once daily for 3 days No Action clonazepam [Klonopin] 1 MG tablet 1 mg PO QDAY Qty: 0 ibuprofen 600 MG tablet 1 tab PO Q8HR PRN (Reason: pain) Qty: 30 0RF ibuprofen 800 mg tablet 800 mg PO TID PRN (Reason: pain) Qty: 30 0RF ofloxacin 0.3 % drops 10 drp otic (ear) BID Qty: 5 0RF etodolac 400 mg tablet 400 mg PO BID PRN (Reason: pain) Qty: 30 0RF diclofenac sodium 1 % gel 2 g topical QID Qty: 30 0RF Rx Instructions: apply to single elbow, wrist or hand; for hand includes palm/fingers/back of hand ibuprofen 800 mg tablet 800 mg PO TID PRN (Reason: pain) Qty: 30 0RF lidocaine [Lidoderm] 5 % adhesive patch,medicated 2 patch topical QDAY Qty: 30 0RF Rx Instructions: leave on most painful area for up to 12 hrs ibuprofen 800 mg tablet 800 mg PO TID PRN (Reason: pain) Qty: 30 0RF ibuprofen 800 mg tablet 800 mg PO Q8H PRN (Reason: pain) Qty: 30 0RF acetaminophen [Pain Relief (acetaminophen)] 325 mg tablet 325 mg PO QID PRN (Reason: pain) Qty: 30 0RF ibuprofen 600 mg tablet 600 mg PO TID PRN (Reason: pain) Qty: 14 0RF baclofen 10 mg tablet 10 mg PO BID PRN (Reason: muscle spasm) Qty: 30 0RF ibuprofen 600 mg tablet 600 mg PO Q8H PRN (Reason: pain) Qty: 20 0RF ibuprofen 800 mg tablet 800 mg PO TID PRN (Reason: pain) Qty: 30 0RF ibuprofen 600 mg tablet 600 mg PO Q6H PRN (Reason: pain) Qty: 30 0RF hydrocodone-acetaminophen 5-325 mg tablet 1 tab PO BID MDD 10 PRN (Reason: pain) Qty: 8 0RF ibuprofen 800 mg tablet 800 mg PO Q8H Qty: 14 0RF Referrals: Michael Root [Primary Care Provider] - In 1 week Problem List Clinical Impression: Otitis media, Cerumen impaction Patient/Caregiver Discharge Instructions Education Materials: Impacted Earwax, ED Otitis Media Antibiotic ... Additional Instructions: Follow up with your primary medical doctor and an ENT within 24 hours. Return to the Emergency Room immediately for any new, worsening, continuing symptoms or any concerns at all. Return to the Emergency Room within 24 hours if you are unable to follow up with your primary medical doctor and an ENT within 24 hours. Use Debrox [id number] as directed. 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 Dumont
[2024-12-09] MEDS: KETOROLAC INJ 30 MG/ML VIAL IM (18:09)
== END 2024-12-09 18:29 | disposition home or self-care (01) ==
LOC: SERX 17:33
PROVIDERS: Emergency Provider Internal Medicine; PCP Family Medicine
DX: H61.22 Impacted cerumen, left ear (principal); H66.92 Otitis media, unspecified, left ear
CPT/HCPCS: 96372; 99282; J1885